=== PATIENT | male | born 1960 | race Two or more races ===

== ENCOUNTER 2022-03-26 12:38 | Emergency (ER) | payer SELFPAY ==
[~2022-03-26] VITALS: Ht 165.1 cm; Wt 90.0 kg
[2022-03-26] MEDS ORDERED: KETOROLAC TROMETH 60MG/2ML VIAL IM ONE (14:15)
[2022-03-26 14:54] VITALS: BP 183/100
[2022-03-26] MEDS ORDERED: CEPH-510 PO (15:24)
[2022-03-26] MEDS ORDERED: IBUP800T26 PO (15:24)
[2022-03-26] MEDS ORDERED: NEOMYCIN-BACITRACIN-POLYM 15GM TOP OINT TOP SCH (22:00)
== END 2022-03-26 15:35 | disposition home or self-care (01) ==
LOC: ER 12:38
DX: S61.032A Puncture wound without foreign body of left thumb without damage to nail, initial encounter (principal); W26.8XXA Contact with other sharp object(s), not elsewhere classified, initial encounter; Y93.89 Activity, other specified; Y92.89 Other specified places as the place of occurrence of the external cause; Y99.8 Other external cause status
CPT/HCPCS: 73130; 96372; 99283; J1885

== ENCOUNTER 2024-01-01 09:07 | Emergency (ER) | payer BC ==
[~2024-01-01] VITALS: Ht 165.1 cm; Wt 93.2 kg
[~2024-01-01 09:07] MED LIST: CEPH-510 PO; IBUP-1455 PO
[2024-01-01] MEDS: METOPROLOL TARTRATE 50 MG TAB PO ONE (10:08)
[2024-01-01] MEDS: cloNIDine HCL 0.1 MG TAB PO ONE (10:09)
[2024-01-01 10:12] VITALS: PULSE 86; RESP 16; O2SAT 97
[2024-01-01 11:12] LABS: Urine Bacteria None Seen /hpf (None Seen)
[2024-01-01 11:22] VITALS: TEMP 98.3
[2024-01-01 11:38] LABS: Basophils # (auto) 0.1 10 ^3/uL (0-0.2); Eosinophils # (auto) 0.3 10 ^3/uL (0-0.8); Eosinophils % (auto) 3.3 % (0.0-7.0); Hematocrit 46.3 % (41.0-53.0); Hemoglobin 16.6 g/dL (13.5-17.5); Lymphocytes # (auto) 2.4 10 ^3/uL (0.4-5.4); Lymphocytes % (auto) 28.4 % (10.0-50.0); Mean Corpuscular Hemoglobin 32.3 pg (28.0-32.0); Mean Corpuscular Hgb Conc. 35.8 g/dL (32.0-36.0); Mean Corpuscular Volume 90.3 fL (80.0-100.0); Monocytes # (auto) 0.6 10 ^3/uL (0-1.3); Monocytes % (auto) 7.2 % (0.0-12.0); Neutrophils % (auto) 60.1 % (37.0-80.0); Nucleated Red Blood Cells % 0.1 %; Red Blood Cells 5.13 10^6/uL (4.5-5.90); Red Cell Distribution Width 13.6 % (11.8-14.3); White Blood Cell 8.4 10^3/uL (4.4-10.8)
[2024-01-01] MEDS: HYDROcodone-ACET 10/325MG TAB PO ONE (11:39)
[2024-01-01 11:42] LABS: Urine Blood 1+ /uL (Negative); Urine Clarity Clear (Clear); Urine Color Light-Yellow (Yellow); Urine Protein, UAD 3+ (Negative); Urine Specific Gravity 1.018 (1.001-1.035); Urine Urobilinogen Normal (Negative); Urine WBC <1 /hpf (0 - 3)
[2024-01-01 11:49] LABS: Chloride 102 mmol/L (98-107); Potassium 3.6 mmol/L (3.5-5.1); Sodium 138 mmol/L (136-145)
[2024-01-01 11:50] LABS: Anion Gap 6 (5-15); Calcium 9.5 mg/dL (8.7-10.4); Carbon Dioxide 30 mmol/L (20-30)
[2024-01-01 11:55] LABS: BUN/Creatinine Ratio 11.7 (10.0-20.0); Blood Urea Nitrogen 9 mg/dL (9-23); Glucose 148 mg/dL (74-106)
[2024-01-01 12:15] VITALS: BP 159/95; PULSE 68; RESP 16; O2SAT 97
[2024-01-01] MEDS ORDERED: METH-1182 PO (12:19)
[2024-01-01] MEDS ORDERED: IBUP-1456 PO (12:19)
[2024-01-01] MEDS ORDERED: ATEN-60 PO (12:19)
== END 2024-01-01 12:26 | disposition home or self-care (01) ==
LOC: ER 09:07
DX: M50.30 Other cervical disc degeneration, unspecified cervical region (principal); I10 Essential (primary) hypertension; Z91.199 Patient's noncompliance with other medical treatment and regimen due to unspecified reason; Z79.899 Other long term (current) drug therapy
CPT/HCPCS: 36415; 72040; 80048; 81001; 85025

== ENCOUNTER 2024-01-10 20:27 | Inpatient (IN) | payer BC ==
[~2024-01-10] VITALS: Ht 175.3 cm; Wt 92.7 kg
[~2024-01-10 20:27] MED LIST changes: +ATEN-60 PO; +IBUP-1456 PO; +METH-1182 PO
[2024-01-10 21:00] LABS: Chloride 106 mmol/L (98-107); Potassium 3.4 mmol/L (3.5-5.1); Sodium 137 mmol/L (136-145)
[2024-01-10 21:02] LABS: Anion Gap 5 (5-15); Calcium 9.5 mg/dL (8.7-10.4); Carbon Dioxide 26 mmol/L (20-30)
[2024-01-10 21:03] LABS: Basophils # (auto) 0.1 10 ^3/uL (0-0.2); Basophils % (auto) 0.7 % (0.0-2.0); Eosinophils # (auto) 0.3 10 ^3/uL (0-0.8); Eosinophils % (auto) 3.1 % (0.0-7.0); Hematocrit 44.8 % (41.0-53.0); Lymphocytes # (auto) 3.2 10 ^3/uL (0.4-5.4); Lymphocytes % (auto) 30.1 % (10.0-50.0); Mean Corpuscular Hemoglobin 32.1 pg (28.0-32.0); Mean Corpuscular Hgb Conc. 35.7 g/dL (32.0-36.0); Mean Corpuscular Volume 89.9 fL (80.0-100.0); Monocytes # (auto) 1.1 10 ^3/uL (0-1.3); Monocytes % (auto) 10.6 % (0.0-12.0); Neutrophils # (auto) 5.8 10 ^3/uL (1.6-8.6); Neutrophils % (auto) 55.5 % (37.0-80.0); Nucleated Red Blood Cells % 0.2 %; Platelet Count (auto) 322 10^3/uL (140-450); Red Blood Cells 4.99 10^6/uL (4.5-5.90); Red Cell Distribution Width 13.3 % (11.8-14.3); White Blood Cell 10.5 10^3/uL (4.4-10.8)
[2024-01-10 21:07] LABS: BUN/Creatinine Ratio 12.7 (10.0-20.0); Blood Urea Nitrogen 10 mg/dL (9-23); Glucose 113 mg/dL (74-106)
[2024-01-10 21:50] VITALS: PULSE 65; RESP 17; O2SAT 96
[2024-01-10] MEDS: ASPirin 325 MG TAB PO ONE (21:58)
[2024-01-10] MEDS: cloNIDine HCL 0.1 MG TAB PO ONE (21:58)
[2024-01-10] MEDS: SOD CHL 0.45% 1,000 ML IV ONE (22:45)
[2024-01-10] MEDS ORDERED: MORPHINE SULFATE INJ 2 MG/ml SYRG IV PRN (22:45)
[2024-01-10] MEDS ORDERED: NITROGLYCERIN 0.4 MG SL TAB SL PRN (22:45)
[2024-01-10 23:07] LABS: INR 0.97 (0.9-1.15); Prothrombin Time 10.3 sec (9.3-11.8)
[2024-01-10] MEDS: ENOXAPARIN SOD 100 MG/1 ML SYRINGE SC ONE (23:16)
[2024-01-10 23:40] VITALS: PULSE 63; RESP 12; O2SAT 97
[2024-01-11 04:49] LABS: Basophils # (auto) 0.2 10 ^3/uL (0-0.2); Basophils % (auto) 1.6 % (0.0-2.0); Eosinophils # (auto) 0.4 10 ^3/uL (0-0.8); Hematocrit 42.8 % (41.0-53.0); Hemoglobin 15.1 g/dL (13.5-17.5); Lymphocytes # (auto) 3.9 10 ^3/uL (0.4-5.4); Lymphocytes % (auto) 39.5 % (10.0-50.0); Mean Corpuscular Hemoglobin 31.9 pg (28.0-32.0); Mean Corpuscular Hgb Conc. 35.4 g/dL (32.0-36.0); Monocytes # (auto) 0.8 10 ^3/uL (0-1.3); Neutrophils # (auto) 4.7 10 ^3/uL (1.6-8.6); Neutrophils % (auto) 46.9 % (37.0-80.0); Nucleated Red Blood Cells % 0.1 %; Platelet Count (auto) 304 10^3/uL (140-450); Red Blood Cells 4.75 10^6/uL (4.5-5.90); Red Cell Distribution Width 13.2 % (11.8-14.3)
[2024-01-11 05:09] LABS: Alanine Aminotransferase 23 U/L (7-40); Alkaline Phosphatase 84 U/L (46-116); Anion Gap 8 (5-15); Aspartate Aminotransferase 18 U/L (13-40); BUN/Creatinine Ratio 13.9 (10.0-20.0); Bilirubin, Total 0.7 mg/dL (0.2-1.0); Blood Urea Nitrogen 10 mg/dL (9-23); Carbon Dioxide 27 mmol/L (20-30); Chloride 105 mmol/L (98-107); Glucose 108 mg/dL (74-106); Potassium 3.4 mmol/L (3.5-5.1); Sodium 140 mmol/L (136-145); Total Protein 7.3 g/dL (5.7-8.2)
[2024-01-11 08:00] VITALS: PULSE 63; RESP 12; O2SAT 97
[2024-01-11] MEDS ORDERED: ATOR-507 PO (15:33)
[2024-01-11] MEDS ORDERED: ASPI1TAB20 PO (15:33)
[2024-01-11 15:52] VITALS: BP 125/71; PULSE 75; RESP 14; TEMP 98.7; O2SAT 95
[2024-01-11 16:00] VITALS: BP 151/88; PULSE 65; RESP 12; O2SAT 100
== END 2024-01-11 17:34 | disposition home or self-care (01) | DRG 282 ==
LOC: ER 20:27 → TELE 22:44
PROVIDERS: ADMIT Internal Medicine; ATTEND Student in an Organized Health Care Education/Training Program
DX: I16.1 Hypertensive emergency (principal); I21.A1 Myocardial infarction type 2; E66.01 Morbid (severe) obesity due to excess calories; Z79.1 Long term (current) use of non-steroidal anti-inflammatories (NSAID); Z79.899 Other long term (current) drug therapy; Z79.2 Long term (current) use of antibiotics; Z68.30 Body mass index [BMI] 30.0-30.9, adult
CPT/HCPCS: 36415; 70450; 70551; 80048; 80053; 84484; 85025; 85610; 93306; 96372; 99291; G0378